=== PATIENT | male | born 2000 | race Caucasian/White ===

== ENCOUNTER 2023-03-17 15:58 | Emergency (ER) | payer MEDICAID, SELFPAY ==
--- NOTE | 2023-03-17 | DI.RAD_ITS ---
Exam(s) XR CHEST 2V PA LATERAL EXAM: XR CHEST 2V PA LATERAL CLINICAL HISTORY: chest wall pain TECHNIQUE: 2D digital imaging was performed. COMPARISON: No exams were available for comparison FINDINGS: HEART: Normal size. Aorta: Not dilated. PULMONARY VASCULATURE: Normal. LUNGS: Clear. PLEURAL SPACE: No pleural effusion or pneumothorax. BONE:Unremarkable for age. IMPRESSION: No acute abnormality. DATA REPOSITORY: RADIATION DOSE DELIVERED:
[2023-03-17 16:01] VITALS: BP 130/75; PULSE 118; RESP 16; TEMP 36.9; O2SAT 95
[2023-03-17] MEDS: Ibuprofen 800 MG TAB PO (16:30)
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
[2023-03-17 17:36] VITALS: BP 130/75; PULSE 90; RESP 16; TEMP 36.9; O2SAT 95
--- OUTSIDE RECORDS SUMMARY | 2023-03-17 17:36 | XMS_ITS | CCD ---
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 BMI (Body Mass Index) 29.05 kg/m^2 06/22/2022 14: 30 Initial VS Weight Measured 180 lbs 06/22/2022 14:30 Ini tial VS Height 66 in 06/22/2022 14:30 Initial VS BSA (Body Surface Area) 1.95 m^2 06/22/2022 1 4:30 Initial VS BP Systolic 144 mmHg 06/22/2022 14:30 Initial VS BP Diastolic 69 mmHg 06/22/2022 14:30 Initia l VS Respiratory Rate 16 bpm 06/22/2022 14:30 In itial VS Heart Rate 82 bpm 06/22/2022 14:30 Initial VS O2 % BldC Oximetry 100 % 06/22/2022 14:30 Initial VS Body Temperature 36.8 degrees 06/22/2022 14:30 In itial VS Allergies Allergy Code Allergy Type Reaction Status No Known Allergies {Clinical monitoring unavailable} 0 Drug allergy Active Procedures Unknown or Not Available. History of Immunizations Unknown or Not Available. Problems Unknown or Not Available. Results Unknown or Not Available. Active Medications Unknown or Not Available. Medications Administered During Visit Unknown or Not Available. Encounters Unknown or Not Available. Social History Smoking Status Code Start Date End Date Never smoker [id number] Patient Decision Aids Unknown or Not Available. Discharge Instructions You were admitted to on 06/22/2022 13:38 You were discharged from on 06/22/2022 14:37 Should you have any questions prior to discharge, please contact a member of your healthcare team. If you have left the hospital and have any questions, please contact your primary care physician. Chief Complaint and Reason For Visit Chief Complaint Date of Onset HEAD INJURY Function Status Unknown or Not Available. Plan of Care Unknown or Not Available. Referral/Transition of Care Unknown or Not Available.
== END 2023-03-17 17:37 | disposition home or self-care (01) ==
LOC: ER 17:35
PROVIDERS: Emergency Provider Nurse Practitioner Acute Care
DX: R07.9 Chest pain, unspecified (principal); S20.212A Contusion of left front wall of thorax, initial encounter; V43.54XA Car driver injured in collision with van in traffic accident, initial encounter
CPT/HCPCS: 99283; 71046